=== PATIENT | female | born 1995 | race Two or more races ===

== ENCOUNTER 2025-07-07 17:36 | Emergency (ER) | payer MEDICAID, SELFPAY ==
[2025-07-07 17:36] VITALS: BMI 50.5
[2025-07-07 17:45] VITALS: BP 130/85; PULSE 83; RESP 18; TEMP 36.9; O2SAT 96
--- NOTE | 2025-07-07 18:49 | XR_ITS ---
Examination: Complete OB ultrasound, less than 14 weeks, transabdominal Date and time of exam: July 07, 2025, 1857 hours INDICATIONS: Vaginal bleeding beginning 10 days ago Technique: Obstetrical ultrasound images less than 14 weeks performed via transabdominal imaging Findings: A normal shaped single intrauterine gestation is present in the uterus. CRL 3.2 cm corresponds to 10 weeks 1 day gestational age Cardiac motion 147 BPM Probable urinary of fibroid degeneration 4.6 x 4.5 cm Ultrasonographic survey of visible and placental structures unremarkable. Amniotic fluid volume appears appropriate for this estimated gestational age. Right ovary 2.9 cm arterial flow Left ovary obscured by bowel gas. IMPRESSION: Viable intrauterine gestation 10 weeks 1 day
[2025-07-07 19:07] LABS: Basophils # (Auto) 0.0 Thou/mm3 (0.0-0.2); Basophils % (Auto) 0 % (0-2.5); Eosinophils # (Auto) 0.1 Thou/mm3 (0.0-0.5); Eosinophils % (Auto) 1 % (0-10); Hematocrit 39.8 % (36.0-46.0); Hemoglobin 13.1 g/dL (12.0-16.0); Immature Granulocytes Auto 0.03 Thou/mm3 (0.00-0.00); Lymphocytes # (Auto) 2.4 Thou/mm3 (1.0-4.8); Lymphocytes % (Auto) 24 % (10-50); Mean Corpuscular HGB Conc 32.9 g/dl (31.0-37.0); Mean Corpuscular Hemoglobin 26.3 pg (25.0-35.0); Mean Corpuscular Volume 80 fL (80-100); Monocytes # (Auto) 0.4 Thou/mm3 (0.0-0.8); Monocytes % (Auto) 4 % (0-12); Neutrophils # (Auto) 7.1 Thou/mm3 (1.8-7.7); Neutrophils % (Auto) 71 % (37-80); Nucleated Red Blood Cell # 0.00 Thou/mm3 (0.00-0.00); Nucleated Red Blood Cell % 0 /100 WBC (0); Platelet Count 203 Thou/mm3 (140-440); RDW Standard Deviation 37.3 fL (36.4-46.3); Red Blood Count 4.98 Miln/mm3 (4.00-5.20); White Blood Count 10.0 Thou/mm3 (3.6-11.0)
[2025-07-07 19:42] LABS: Alanine Aminotransferase 7 U/L (10-49); Albumin, Serum 4.0 gm/dL (3.5-5.0); Albumin/Globulin Ratio 1.1 (1.2-2.2); Alkaline Phosphatase 63 U/L (46-116); Anion Gap 11 (7-16); Aspartate Amino Transferase 12 U/L (0-34); BUN/Creatinine Ratio 10 Ratio (12-20); Bilirubin,Total 0.3 mg/dL (0.3-1.2); Blood Urea Nitrogen < 5 mg/dL (9-23); Calcium 9.2 mg/dL (8.3-10.6); Calcium (Corrected) 9.2 mg/dL (8.5-10.1); Carbon Dioxide 23.7 mMol/L (20.0-31.0); Chloride 103 mMol/L (98-107); Creatinine (Component) 0.5 mg/dL (0.6-1.3); Estimated Creatinine Clearance 214.0 mL/min (>60); Globulin 3.6 gm/dL (2.3-3.5); Glucose 86 mg/dL (74-106); Osmolality,Calculated 271 (275-295); Potassium 4.2 mMol/L (3.4-5.1); Sodium 138 mMol/L (136-145); Total Protein 7.6 gm/dL (5.7-8.2); eGFR > 60 See Note
[2025-07-07 19:58] LABS: Beta HCG,Quantitative 74810 mIU/mL (<5.0)
[2025-07-07 21:11] LABS: Collection Type, Urine Voided
[2025-07-07 21:36] LABS: Bacteria,Urine 1+; Bilirubin,Urine Negative (Negative); Blood,Urine 3+ (Negative); Clarity,Urine Turbid (Clear/Hazy); Color,Urine Yellow (Lt Yel-Yel); Glucose, Urine Negative (Negative); Hyaline Casts,Urine < 1 /hpf (0-1); Ketones,Urine 1+ (Negative); Leukocyte Esterase,Urine Positive (Negative); Nitrite,Urine Negative (Negative); PH,Urine 6.0 (5.0-7.0); Protein,Urine Trace (Neg - Trace); RBC,Urine 10 /hpf (0-3); Specific Gravity,Urine 1.030 (1.001-1.035); Squamous Epithelial Cell,Urine 9 /hpf (0-5); Urobilinogen,Urine Negative mg/dL (0.0-1.0); WBC,Urine 8 /hpf (0-5)
[2025-07-07 22:21] VITALS: BP 130/85; PULSE 86; RESP 16; TEMP 36.9; O2SAT 98
--- NOTE | 2025-07-07 22:34 | EDNOTE_ITS ---
ED OB Contraction Preg RMI/HPI General Chief complaint: Vaginal Bleeding Stated complaint: VAGINAL BLEEDING, 11 WKS Time Seen by Provider: 07/07/25 18:20 Arrival date/time: 07/07/25 17:36 This is a case of 29-year-old female with no medical history came in in the emergency room due to vaginal bleeding today patient is 12 weeks 5 para 3 1 miscarriage patient noted also to have a mild pelvic cramping no other symptoms noted no checkup patient states that she has appointment to see OB on Wednesday no nausea no vomiting no fever no chills Limitations: no limitations Related Data Previous Rx's ?Medication ?Instructions ?Recorded cephalexin 500 mg capsule 500 mg PO TID 10 days #30 ca ps 07/07/25 Allergies Allergy/AdvReac Type Severity Reaction Status Date / Time ketorolac (From Toradol) Allergy Severe Swelling Verified 07/07/25 17:36 of Lip/Tongue/Throat Review of Systems Review of Systems Systems Reviewed: All systems reviewed, normal except as documented Constitutional Constitutional: Reports system reviewed and no additional complaints, except as documented and Reports as per HPI Cardiovascular Cardiovascular: Reports system reviewed and no additional complaints, except as documented and Reports as per HPI Respiratory Respiratory: Reports system reviewed and no additional complaints, except as documented and Reports as per HPI Gastrointestinal Gastrointestinal: Reports system reviewed and no additional complaints, except as documented, Reports as per HPI, Denies abdominal pain, Denies nausea and Denies vomiting Genitourinary Genitourinary: Reports system reviewed and no additional complaints, except as documented, Reports as per HPI, Reports abnormal vaginal bleeding, Denies difficulty voiding, Denies genital lesions, Denies genital pruritis, Reports pelvic pain, Denies urinary frequency, Denies urinary incontinence, Denies urinary hesitancy, Denies urinary urgency, Denies vaginal discharge, Denies vaginal dryness, Denies vaginal odor and Denies vaginal pruritus Neurologic Neurologic: Reports system reviewed and no additional complaints, except as documented and Reports as per HPI Past Medical History Past Medical History NEUROLOGIC: Negative Neurological Disorders or Seizures CARDIAC: Negative Cardiac Disorders, Myocardial Infarction, Cardiac Arrhythmia, Atrial Fibrillation, Angina, Heart Murmur, Coronary Artery Disease, Atherosclerotic Heart Disease, Peripheral Vascular Disease, Hypercholesterolemia, Aneurysm, Congestive Heart Failure, Congenital Heart Disease, Valvular Heart Disease, Rheumatic Fever, Cardiomyopathy, Edema, Pericarditis, Cellulitis, Deep Vein Thrombosis, Hypertension, Hypotension or Varicose Veins RESPIRATORY: Negative Chronic Obstructive Pulmonary Disease (COPD) or Asthma GASTROINTESTINAL: Negative Gastrointestinal Disorders, Hepatitis or Colorectal Cancer GENITOURINARY: Negative Genitourinary Disorders, Renal Disease or Prostate Cancer REPRODUCTIVE: Negative Breast Cancer, Endometriosis, Genital Herpes, Gonorrhea, Pelvic Inflammatory Disease, Previous Pregnancies, Syphilis, Testicular Cancer or Uterine Prolapse MUSCULOSKELETAL: Negative Musculoskeletal Disorders, Bone Cancer or Carpal Tunnel Syndrome ENT: Negative Cataracts ENDOCRINE: Negative Endocrine Disorders, Diabetes Mellitus Type 1 or Diabetes Mellitus Type 2 HEMATOLOGIC: Negative Blood Disorders or Sickle Cell Disease OTHER HISTORY: Negative Hospitalization, Autoimmune Disease, Down Syndrome, Developmental Delay, Shingles, Falls, Blood Transfusions, Blood Transfusion Reaction, Anesthesia Reactions, Organ Transplant, Chemotherapy, Radiation Therapy, Hyperbaric Therapy, MRSA, VRSA, Vancomycin-Resistant Enterococci, Human Immunodeficiency Virus (HIV), Chicken Pox, Measles, Mumps, Rubella ([place] Measles), Pertussis, Clostridium Difficile, Cancer, Breast Cancer, Cervical Cancer, Colorectal Cancer, Lung Cancer, Ovarian Cancer, Prostate Cancer or Testicular Cancer Family History FAMILY HISTORY: Positive Family Surgery (mother- knee surgery); Negative Family Psychiatric Problems, Family Respiratory Disorders, Family Cardiac Disorders, Family Gastrointestinal Problems, Family Cancer or Family Anesthesia Reaction Surgical History SURGICAL: Positive Abdominal Surgery (previous section); Negative Cardiac Surgery, Pacemaker, Endocrine Surgery, Thyroidectomy, Ear Surgery, Tympanostomy Tube, Eye Surgery, Nose Surgery, Oral Surgery, Tonsillectomy, Adenoidectomy, Cochlear Implant, Corneal Transplant, Throat Surgery, Tracheostomy, Gastric Bypass Surgery, Gastrostomy, Bowel Surgery, Nephrectomy, Transurethral Resection, Joint Replacement, Amputation, Open Reduction Internal Fixation, Arthroscopy, Neurologic Surgery, Brain Shunt, Mastectomy, Lumpectomy, Hysterectomy, Tubal Ligation, Section or Organ Transplant Social History SMOKING STATUS: Never smoker SECOND HAND EXPOSURE: No ED Exam General Limitations: Present no limitations General appearance: Present alert, in no apparent distress and other (Patient is awake alert oriented not in distress nontoxic looking well-hydrated well- nourished) Head Head exam: Present atraumatic, normocephalic and normal inspection Eye Eye exam: Present normal appearance, PERRL and EOMI ENT ENT exam: Present normal exam, normal oropharynx and mucous membranes moist Neck Neck exam: Present normal inspection, full ROM and trachea midline Chest Chest inspection: Present normal inspection and symmetric chest wall rise Respiratory Respiratory exam: Present normal lung sounds bilaterally; Absent respiratory distress, wheezes, stridor, accessory muscle use or prolonged expiratory phase Cardiovascular Cardiovascular exam: Present regular rate, normal rhythm and normal heart sounds; Absent bradycardia, tachycardia, irregular rhythm, systolic murmur or diastolic murmur Abdominal Exam Abdominal exam: Present soft, normal bowel sounds, pulsatile mass and other (Gravid uterus); Absent distention, tenderness, guarding, rebound, rigidity, diminished bowel sounds, hyperactive bowel sounds, hypoactive bowel sounds, organomegaly, psoas sign, obturator sign, Rovsing's sign or tenderness at McBurney's Point Extremities Exam Extremities exam: Present normal inspection and full ROM Back Exam Back exam: Present normal inspection and full ROM Neurological Exam Neurological exam: Present alert, oriented X3, CN II-XII intact, normal gait and reflexes normal; Absent motor sensory deficit Psychiatric Psychiatric exam: Present normal affect and normal mood Skin Skin exam: Present warm, dry, intact and normal color Course Quality Measures none Orders Category Date Time Status US OB <= 14 weeks fetus Stat Exams 07/07/25 18:49 Completed ABO/RH Type Stat Lab 07/07/25 18:55 Completed Beta HCG,Quantitative Stat Lab 07/07/25 18:55 Completed CBC Stat Lab 07/07/25 18:55 Completed CMP [Comprehensive Metabolic Panel] Stat Lab 07/07/25 18:55 Completed Urinalysis Stat Lab 07/07/25 20:53 Completed Vital Signs Vital signs: Vital Signs Temperature 98.4 F 07/07/25 17:45 Pulse Rate 83 07/07/25 17:45 Respiratory Rate 18 07/07/25 17:45 Blood Pressure 130/85 H 07/07/25 17:45 Pulse Oximetry (%) 96 07/07/25 17:45 Oxygen Delivery Method Room Air 07/07/25 17:45 Patient oxygen saturation is 96% in room air OB/Uterine Contractions MDM Narrative MDM Narrative:: This is a case of 29-year-old female with no medical history came in in the emergency room due to vaginal bleeding today patient is 12 weeks 5 para 3 1 miscarriage patient noted also to have a mild pelvic cramping no other symptoms noted no checkup patient states that she has appointment to see OB on Wednesday no nausea no vomiting no fever no chills physical examination patient is awake alert oriented not in distress nontoxic looking abdominal is benign nonsurgical no guarding no rebound no rigidity no tenderness patient excellent skin turgor patient states that the vaginal bleeding is improved while waiting in the lobby patient ultrasound showed a 10 weeks with heart tones of 146 patient blood test showed no leukocytosis no anemia kidney and liver function is normal no electrolyte imbalance patient urinalysis showed positive nitrite and positive WBC in the urine suggestive of urinary tract infection patient blood test is B+ patient beta-hCG [id number] based on my physical examination and history patient symptoms suggestive of threatened in early with urinary tract infection patient was discharged with cephalexin for urinary tract infection she was informed the importance to see a OB and she will continue to see the OB on Wednesday if not return here in the emergency room for reevaluation and possible repeat beta-hCG and pelvic ultrasound hydration is advised pelvic rest is advised no sex until cleared by primary care physician for any worsening symptoms return precaution in the emergency room is advised patient was discharged with comfortable condition walking with stable gait. Patient verbalized no further complains explained diagnosis and answered patient question. Patient is comfortable with the proposed management plan including the need to follow up with his/her primary care physician and any specialist if applicable Discussed patient for any urgent condition or worsening sx, He/She needed to go to emergency room immediately or call 911. Patient acknowledge the responsibility to follow up as instructed and to monitor her/his symptoms. For any persistence of the symptoms for more than 3-5 days return precaution advised. Discussed the result of the test and was given printed discharge instruction Patient data External records reviewed:: [facility] previous records Clinical information provided by:: patient Social determinants that could affect healthcare access:: none Patient has the following chronic illnesses:: None How is presenting disease/condition affected by chronic disease/condition?: no chronic disease Evaluation data The following diagnostics were reviewed and interpreted by me:: lab results and radiology exam(s) Lab and/or radiology exams considered but not ordered:: Reviewed Interpretation Summary: Reviewed Medications / Prescriptions Medications or Prescriptions considered but not ordered:: Given Medication administrations:: Given Consultations Consultation(s) initiated? (list below): No Diagnosis OB Contractions Differential Diagnosis: other (Threatened ) Most likely diagnosis given after review of the tests above:: Threatened urinary tract infection Admission Indicated Admission indicated?: not indicated Explain why admission is indicated or not indicated:: Not indicated Admission Request Was there a request for admission?: No Admission Attestation Admission request attestation: Not indicated Disposition Plan Disposition Plan: Discharge Discharge Attestation Discharge Attestation: The patient and all family members were given an opportunity to ask questions and understood the discharge instructions. Discharge instructions specifically effects, indications for sooner follow up or return to the emergency department, and the expected course of current diagnosis. Patient condition: Stable Discharge Plan Plan Patient Disposition: HOME (Self Care) Patient condition on transfer: Stable Prescriptions/Referrals Prescriptions/Med Rec: New cephalexin 500 mg capsule 500 mg PO TID 10 Days Qty: 30 0RF Referrals: Zaire Hay MD [Primary Care Provider] - In 1 week Problem List Clinical Impression: Threatened in early , Urinary tract infection Patient/Caregiver Discharge Instructions Education Materials: Urinary Tract Infections in Women, Understanding Miscarriage ... 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 for checkup and follow- up for your threatened in early if not seen in 2 days return to the emergency room for reevaluation and for repeat pelvic ultrasound and beta-hCG worsening symptoms or any emergent concern return to the emergency room immediately or call 911 take your medication as directed finish the course of antibiotic increase water intake keep hydrated no sex until cleared by your primary care physician pelvic rest as advised Print Language: Icelandic Stand Alone Forms: Elo Award Info., Patient Portal Info Letter PA/VERIFICATION CLERK Supervising Physician MIRNA/KASSIDY Supervising Physician: Dr. Plasencia
== END 2025-07-07 22:34 | disposition home or self-care (01) ==
PROVIDERS: Nurse Practitioner Family; Emergency Provider Emergency Medicine; PCP Family Medicine
DX: O20.0 Threatened abortion (principal); Z3A.12 12 weeks gestation of pregnancy; O23.41 Unspecified infection of urinary tract in pregnancy, first trimester; N39.0 Urinary tract infection, site not specified
CPT/HCPCS: 36415; 76801; 80053; 81001; 84702; 85025; 86900; 86901; 99282

== ENCOUNTER 2025-09-04 10:15 | Outpatient (AMB) | payer MEDICAID, SELFPAY ==
[2025-09-04 10:47] VITALS: BP 126/81; PULSE 78; RESP 16; TEMP 36.3; O2SAT 97; BMI 50.3
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
== END 2025-09-04 11:36 | disposition home or self-care (01) ==
LOC: HODSOBC 10:15
PROVIDERS: PCP Family Medicine; Referring Provider Family Medicine; Supervising Provider Obstetrics & Gynecology; Visit Provider Obstetrics & Gynecology
DX: O09.292 Supervision of pregnancy with other poor reproductive or obstetric history, second trimester (principal); O34.211 Maternal care for low transverse scar from previous cesarean delivery; O09.892 Supervision of other high risk pregnancies, second trimester; O99.612 Diseases of the digestive system complicating pregnancy, second trimester; K43.9 Ventral hernia without obstruction or gangrene; O23.42 Unspecified infection of urinary tract in pregnancy, second trimester; Z3A.18 18 weeks gestation of pregnancy; Z16.11 Resistance to penicillins
CPT/HCPCS: 99214; G0463

== ENCOUNTER 2025-10-08 11:35 | Outpatient (AMB) | payer MEDICAID, SELFPAY ==
[2025-10-08 11:39] VITALS: BP 117/81; PULSE 86; RESP 16; TEMP 36.2; O2SAT 95; BMI 50.0
--- NOTE | 2025-10-08 11:39 | OBCLNT_ITS ---
Vital Signs 10/08/25 11:39 Height 1.6 m Height Method Stated Weight 128.14 kg Weight Measurement Method Standing Scale BMI 50.0 BP 117/81 Blood Pressure Source Automatic Cuff Blood Pressure Location Left Upper Arm Position Sitting Respiration 16 Pulse 86 Pulse Source Monitor Temp 97.2 F Temp Source Oral Pulse Oximetry (%) 95 Oxygen Delivery Method Room Air Allergies/Home Meds Allergies & Medications Allergies ketorolac (From Toradol) Allergy (Severe, Verified 10/08/25 11:46) Swelling of Lip/Tongue/Throat Immunizations Immunizations Flu Vaccine in the Last 12 Months: No Flu Vaccine Exclusion Criteria: Refused by Patient Care OB Visit Log OB Flowsheet Initial Weight: Not Recorded Date -?-?-?-?-?-?-?-?-?-?-?-?- EGA Weight BP Alb Glu CTX Pres Fundal ht FHR Mov Dilation Station Effacement Hx Notes Visit Note 10/08/25 -?-?-?-?-?-?-?-?-?-?-?-?- 23w 3d 128.14 kg 117/81 absent cephalic 23 165 active - She reports recent illness with cough and associated symptoms. - Has been experiencing cough with muc us production - Cough is worse when lying down, prev enting her from getting rest - Each coughing episode causes pain in her stomach area where she feels something protruding out - Attributes stomach pain to existing hernia that becomes more painful with coughing - She denies any other acute concerns or changes in her symptoms. - Patient has applied for unemployment a fter leaving her job and is seeking disability documentation. - 3-ho ur glucose tolerance test to be completed for abnormal 1-hour glucose screening (149 mg/dL, cutoff 139 mg/dL) - Urgent referral to general surgery for evaluation of symptomatic hernia - Cough medicine prescribed for producti ve cough symptoms - Ultrasound referral to [place] pending insurance approval - Disability paperwork to be completed a t 24 weeks gestation (earliest eligible time) - Follow-up appointment in 4 weeks PEBBLES Calculator Estimated Delivery Date Method Current WG Current Estimate 02/01/26 Ultrasound #1 26w 3d Other Estimates 01/21/26 LMP (Certain) 28w 0d Notes Visit Date: 10/08/25 Last Updated by: Gilmar Pantoja MD Laboratory, Imaging, and Diagnostic Test Results - Date: 10/03/2025 - Hepatitis B: Negative - Hepatitis C: Negative - RPR: Non-reactive - Rubella: Immune - Blood group: B-positive - Antibody screen: Negative - HIV: Negative - Gonorrhea: Negative - Chlamydia: Negative - Hemoglobin: 12.4 g/dL - Urinalysis: 2+ glucose - NIPT: Negative for tested syndromes, gender consistent with female - SMA testing: Negative - Cystic fibrosis screening: Negative - 1-hour glucose tolerance test: 149 mg/dL (abnormal, cutoff 139 mg/dL) - Hemoglobin A1c: 5.3% (improved from previous) Office Procedures OBC Clinic LOC & Office Proc's Nursing/Assessment Patient Status: Established Patient OB Clinic Nursing Assessment: Medication Reconciliation, Update PMH in EMR and Vital Signs OB Clinic Coordination of Care: Complex Care and Chronic Disease 1-5, Consent,records obtained, informed consent, Education Simp Pt/Fam, 1 Ins Authorization, Lab and Imaging orders, Results/Orders obtained and Staff clarify orders Special Needs: Heart tones Established Patient Charge Established Patient Point Assignment: 150 Established Patient Point Charge: EP Level 4 (120-155) Assessment & Plan Diagnosis / Problem List (1) Cough at rest: Status: Acute (2) Maternal care for low transverse scar from previous delivery: Status: Acute (3) Umbilical hernia: Status: Acute (4) BMI 50.0-59.9, adult: Status: Acute Plan Problem List - Gestational diabetes mellitus - Ventral hernia - Upper respiratory tract infection Assessment Safia is a 23 weeks 3 days patient with history of 3 C-sections and elevated BMI of 50. She has an abnormal 1-hour glucose tolerance test with result of 149 mg/dL (cutoff 139 mg/dL), indicating need for 3-hour glucose tolerance test to evaluate for gestational diabetes, though her hemoglobin A1c has improved to 5.3. She presents with cough and hernia pain that worsens with coughing, requiring general surgery evaluation. Her labs are otherwise reassuring with negative infectious disease screening, hemoglobin of 12.4, and negative genetic screening including NIPT consistent with female fetus. Urinalysis shows 2+ glucose consistent with her abnormal glucose screening. heart rate is normal at 165 bpm. Plan - 3-hour glucose tolerance test to be completed for abnormal 1-hour glucose screening (149 mg/dL, cutoff 139 mg/dL) - Urgent referral to general surgery for evaluation of symptomatic hernia - Cough medicine prescribed for productive cough symptoms - Ultrasound referral to [place] pending insurance approval - Disability paperwork to be completed at 24 weeks gestation (earliest eligible time) - Follow-up appointment in 4 weeks 1. Progress Reviewed gestational age at 23 weeks 3 days, heart rate of 165 bpm (n ormal). Planned routine visit in 4 weeks. 2. Instructed patient to monitor movements and report decreases immediately. 3. Testing Counseled on routine third-trimester labs per guidelines. Discussed potential need for ultrasound or monitoring based on risk factors. 4. Preeclampsia Precaution Educated on preeclampsia signs: severe headache, vision changes, right upper quadrant pain, sudden swelling. Advised urgent reporting of symptoms and discussed blood pressure monitoring if high risk. 5. Labor Precautions Reviewed labor signs: regular contractions, pelvic pressure, back pain, bleeding, or fluid leakage. Instructed to seek immediate care for these symptoms. 6. Lifestyle and Delivery Preparation Reinforced vitamins, nutrition, and safe activity. Discussed plan, pain management, and . Advised on labor preparation (e.g., hospital bag) and expectations. 7. Psychosocial Support Assessed emotional well-being and offered resources for mental health or parenting support.
== END 2025-10-08 12:06 | disposition home or self-care (01) ==
LOC: HODSOBC 11:35
PROVIDERS: Supervising Provider Obstetrics & Gynecology; Visit Provider Obstetrics & Gynecology
DX: O09.292 Supervision of pregnancy with other poor reproductive or obstetric history, second trimester (principal); O34.211 Maternal care for low transverse scar from previous cesarean delivery; O09.892 Supervision of other high risk pregnancies, second trimester; O99.612 Diseases of the digestive system complicating pregnancy, second trimester; K42.9 Umbilical hernia without obstruction or gangrene; O99.810 Abnormal glucose complicating pregnancy; O99.891 Other specified diseases and conditions complicating pregnancy; R05.9 Cough, unspecified; Z3A.23 23 weeks gestation of pregnancy; Z28.21 Immunization not carried out because of patient refusal; Z88.5 Allergy status to narcotic agent
CPT/HCPCS: 99214; G0463

== ENCOUNTER 2025-10-30 10:53 | Outpatient (AMB) | payer MEDICAID, SELFPAY ==
[2025-10-30 11:01] VITALS: BP 120/81; PULSE 93; RESP 18; TEMP 36.8; O2SAT 98; BMI 50.6
--- NOTE | 2025-10-30 11:01 | OBCLNT_ITS ---
Vital Signs 10/30/25 11:01 Height 1.6 m Height Method Stated Weight 129.727 kg Weight Measurement Method Standing Scale BMI 50.6 BP 120/81 Blood Pressure Source Automatic Cuff Blood Pressure Location Left Upper Arm Position Sitting Respiration 18 Pulse 93 Pulse Source Monitor Temp 98.2 F Temp Source Oral Pulse Oximetry (%) 98 Oxygen Delivery Method Room Air Allergies/Home Meds Allergies & Medications Allergies ketorolac (From Toradol) Allergy (Severe, Verified 10/30/25 11:03) Swelling of Lip/Tongue/Throat Medication Reconciliation No Known Home Medications 10/30/25 [History Confirmed 10/30/25] Immunizations Immunizations Flu Vaccine in the Last 12 Months: No Flu Vaccine Exclusion Criteria: No Exclusion Criteria Care OB Visit Log OB Flowsheet Initial Weight: Not Recorded Date -?-?-?-?-?-?-?-?-?-?-?-?- EGA Weight BP Alb Glu CTX Pres Fundal ht FHR Mov Dilation Station Effacement Hx Notes Visit Note 09/04/25 -?-?-?-?-?-?-?-?-?-?-?-?- 18w 4d 128.934 kg 126/81 absent unknown Safia Roque, , presents for routine visit at 18 weeks and 4 days gestation. Patient has a history of three prior shaheen arean deliveries. No contractions, LOF, VB and reports goo d FM. Denies KAPOOR, VC, and epigastric pain. 10/08/25 -?-?-?-?-?-?-?-?-?-?-?-?- 23w 3d 128.14 kg 117/81 absent cephalic 23 165 active - She reports recent illness with cough and associated symptoms. - Has been experiencing cough with muc us production - Cough is worse when lying down, prev enting her from getting rest - Each coughing episode causes pain in her stomach area where she feels something protruding out - Attributes stomach pain to existing hernia that becomes more painful with coughing - She denies any other acute concerns or changes in her symptoms. - Patient has applied for unemployment a fter leaving her job and is seeking disability documentation. - 3-ho ur glucose tolerance test to be completed for abnormal 1-hour glucose screening (149 mg/dL, cutoff 139 mg/dL) - Urgent referral to general surgery for evaluation of symptomatic hernia - Cough medicine prescribed for producti ve cough symptoms - Ultrasound referral to [place] pending insurance approval - Disability paperwork to be completed a t 24 weeks gestation (earliest eligible time) - Follow-up appointment in 4 weeks 10/30/25 -?-?-?-?-?-?-?-?-?-?-?-?- 26w 4d 129.727 kg 120/81 absent cephalic - She reports experiencing episodes of feeling shaky, particularly in the morning and a couple of hours after eating. - She has learned to eat something in the morning to prevent these episodes. - She describes needing to ensure regu lar food intake to avoid feeling shaky. - Patient reports the baby is very activ e. - She had an abnormal one-hour glucose t olerance test but her three-hour glucose tolerance test results were within normal limits. - She denies restricting her diet excessively. - Eat regular meals, especially in the morning - Maintain eating intervals of no more t caban 4 hours - Choose healthy snacks including fruit, protein, salad, or crackers - Avoid sweet or bakery items - Carry candy for hypoglycemic episodes - Follow up with referral (patient to ca ll if not contacted due to holiday delays) - Return in 4 weeks PEBBLES Calculator Estimated Delivery Date Method Current WG Current Estimate 02/01/26 Ultrasound #1 28w 4d Other Estimates 01/21/26 LMP (Certain) 30w 1d Notes Visit Date: 10/30/25 Last Updated by: Gilmar Pantoja MD Problem List - Hypoglycemia in - at 26 weeks 4 days gestation Assessment 26-week 4-day patient with negative 3-hour glucose tolerance test following abnormal 1-hour screening, though glucose levels are on the lower side. Patient reports episodes of shakiness, particularly in the morning and a couple hours after eating, consistent with hypoglycemic symptoms. heart rate is normal at 156 bpm with reported increased activity. Plan - Eat regular meals, especially in the morning - Maintain eating intervals of no more than 4 hours - Choose healthy snacks including fruit, protein, salad, or crackers - Avoid sweet or bakery items - Carry candy for hypoglycemic episodes - Follow up with referral (patient to call if not contacted due to holiday delays) - Return in 4 weeks 1. Progress Reviewed gestational age at 26 weeks 4 days, growth, and heart rate of 156 bpm (normal). Planned frequent visits (every 2 weeks until 36 weeks, then weekly). 2. Instructed patient to monitor movements and report decreases immediately. 3. Testing Counseled on routine third-trimester labs per guidelines. Discussed potential need for ultrasound or monitoring based on risk factors. 4. Preeclampsia Precaution Educated on preeclampsia signs: severe headache, vision changes, right upper quadrant pain, sudden swelling. Advised urgent reporting of symptoms and discussed blood pressure monitoring if high risk. 5. Labor Precautions Reviewed labor signs: regular contractions, pelvic pressure, back pain, bleeding, or fluid leakage. Instructed to seek immediate care for these symptoms. 6. Lifestyle and Delivery Preparation Reinforced vitamins, nutrition, and safe activity. Discussed plan, pain management, and . Advised on labor preparation (e.g., hospital bag) and expectations. 7. Psychosocial Support Assessed emotional well-being and offered resources for mental health or parenting support. Visit Date: 10/08/25 Last Updated by: Gilmar Pantoja MD Laboratory, Imaging, and Diagnostic Test Results - Date: 10/03/2025 - Hepatitis B: Negative - Hepatitis C: Negative - RPR: Non-reactive - Rubella: Immune - Blood group: B-positive - Antibody screen: Negative - HIV: Negative - Gonorrhea: Negative - Chlamydia: Negative - Hemoglobin: 12.4 g/dL - Urinalysis: 2+ glucose - NIPT: Negative for tested syndromes, gender consistent with female - SMA testing: Negative - Cystic fibrosis screening: Negative - 1-hour glucose tolerance test: 149 mg/dL (abnormal, cutoff 139 mg/dL) - Hemoglobin A1c: 5.3% (improved from previous) Office Procedures [facility] LOC & Office Proc's Nursing/Assessment Patient Status: Established Patient OB Clinic Nursing Assessment: Medication Reconciliation, Update PMH in EMR and Vital Signs OB Clinic Coordination of Care: Education Complex Pt/Fam, Consent,records obtained, informed consent, Lab and Imaging orders, Results/Orders obtained and Staff clarify orders Special Needs: Heart tones Established Patient Charge Established Patient Point Assignment: 115 Established Patient Point Charge: EP Level 3 (80-115) Assessment & Plan Diagnosis / Problem List (1) Maternal care for low transverse scar from previous delivery: Status: Acute (2) Supervision of high risk , unspecified, second trimester: Status: Acute Plan Problem List - Hypoglycemia in - at 26 weeks 4 days gestation Assessment 26-week 4-day patient with negative 3-hour glucose tolerance test following abnormal 1-hour screening, though glucose levels are on the lower side. Patient reports episodes of shakiness, particularly in the morning and a couple hours after eating, consistent with hypoglycemic symptoms. heart rate is normal at 156 bpm with reported increased activity. Plan - Eat regular meals, especially in the morning - Maintain eating intervals of no more than 4 hours - Choose healthy snacks including fruit, protein, salad, or crackers - Avoid sweet or bakery items - Carry candy for hypoglycemic episodes - Follow up with referral (patient to call if not contacted due to holiday delays) - Return in 4 weeks 1. Progress Reviewed gestational age at 26 weeks 4 days, growth, and heart rate of 156 bpm (normal). Planned frequent visits (every 2 weeks until 36 weeks, then weekly). 2. Instructed patient to monitor movements and report decreases immediately. 3. Testing Counseled on routine third-trimester labs per guidelines. Discussed potential need for ultrasound or monitoring based on risk factors. 4. Preeclampsia Precaution Educated on preeclampsia signs: severe headache, vision changes, right upper quadrant pain, sudden swelling. Advised urgent reporting of symptoms and discussed blood pressure monitoring if high risk. 5. Labor Precautions Reviewed labor signs: regular contractions, pelvic pressure, back pain, bleeding, or fluid leakage. Instructed to seek immediate care for these symptoms. 6. Lifestyle and Delivery Preparation Reinforced vitamins, nutrition, and safe activity. Discussed plan, pain management, and . Advised on labor preparation (e.g., hospital bag) and expectations. 7. Psychosocial Support Assessed emotional well-being and offered resources for mental health or parenting support.
== END 2025-10-30 11:23 | disposition home or self-care (01) ==
LOC: HODSOBC 10:53
PROVIDERS: Supervising Provider Obstetrics & Gynecology; Visit Provider Obstetrics & Gynecology
DX: O09.292 Supervision of pregnancy with other poor reproductive or obstetric history, second trimester (principal); O34.211 Maternal care for low transverse scar from previous cesarean delivery; O09.892 Supervision of other high risk pregnancies, second trimester; O99.282 Endocrine, nutritional and metabolic diseases complicating pregnancy, second trimester; Z3A.26 26 weeks gestation of pregnancy; E16.2 Hypoglycemia, unspecified; Z88.6 Allergy status to analgesic agent
CPT/HCPCS: 99213; G0463